=== PATIENT | male | born 1990 ===

== ENCOUNTER 2017-07-09 15:19 | Emergency (ER) | payer MEDICAID ==
[~2017-07-09] VITALS: Ht 182.9 cm; Wt 104.3 kg
[2017-07-09] MEDS ORDERED: Amoxicillin500 MG PO (15:57)
== END 2017-07-09 16:09 | disposition home or self-care (01) ==
LOC: ER 15:19
DX: K04.7 Periapical abscess without sinus (principal)
CPT/HCPCS: 99282

== ENCOUNTER → 2021-01-19 | Outpatient (CLI) | payer SELFPAY ==
[~2021-01-19] MED LIST: Amoxicillin500 MG PO; Cleocin HCl300 MG PO; IBUP800 PO; Norco 5-325 Ta1 EACH PO; Veetids 500500 MG PO
== END | disposition home or self-care (01) ==
LOC: LAB SHORT 10:30
DX: J02.9 Acute pharyngitis, unspecified (principal)
CPT/HCPCS: 87081

== ENCOUNTER → 2021-01-26 | Outpatient (CLI) | payer SELFPAY ==
[2021-01-28 03:08] LABS: CHLAMYDIA TRACHOMATIS, NAA Negative (Negative)
== END | disposition home or self-care (01) ==
LOC: LAB SHORT 13:10
PROVIDERS: Family Medicine
DX: Z11.3 Encounter for screening for infections with a predominantly sexual mode of transmission (principal)
CPT/HCPCS: 87491; 87591

== ENCOUNTER → 2022-04-21 | Outpatient (CLI) | payer SELFPAY ==
[2022-04-21 15:18] LABS: Source, Urine Voided
[2022-04-21 17:49] LABS: Amorphous Light (0-Heavy); Bacteria Mod /hpf; Mucus Light (0-Heavy); Red Blood Cells, Urine 0-2 /hpf (0-2); Squamous Epithelial Cells Rare /hpf (Few); White Blood Cells, Urine 0-2 /hpf (0-5)
== END ==
LOC: LAB SHORT 15:15 → LAB 15:15
PROVIDERS: Family Medicine
DX: N39.0 Urinary tract infection, site not specified (principal)
CPT/HCPCS: 81015; 87086